=== PATIENT | female | born 1935 | race Hispanic/Latino ===

== ENCOUNTER 2018-02-24 12:02 | Emergency (ER) | payer MEDICARE ==
[2018-02-24 12:32] VITALS: BP 152/75; PULSE 81; RESP 18; TEMP 98.2; BMI 17.2
--- NOTE | 2018-02-24 13:58 | ED PDOC ---
Arrival/HPI - General Chief Complaint: Upper Extremity Problem/Injury Time Seen by Provider: 02/24/18 12:30 Historian: Patient, Family - History of Present Illness Narrative History of Present Illness (Text): you were treated in the ED today for having an accidental fall about 1 week ago , went to the clinic yesterday with xrays of the left wrist/forearm done which showed comminuted nondisplaced fracture of the distal ulna diaphysis. known radial ulnar styloid fracture is not well seen on the current study/oblique fractuyre distal ulna as well as a fracture of the radial styloid process on radias/ulna xrays and with mild pain but which is controlled with motrin and you came because you thought you were to see an orthopedic doctor today but otherwise without any head injury/neck pain/loss of of consciousness/nausea/ vomiting/headache/dizziness/difficulty breathing/chest pain/abdomen pain/ numbness/tingling/loss of any other limb function/pain with urination. 02/24/18 13:51 Time/Duration: 1 week Symptom Onset: Gradual Symptom Course: Improving Quality: Aching Severity Level: 2 Activities at Onset: Rest Context: Sitting Past Medical History - Provider Review Nursing Documentation Reviewed: Yes - Travel History Have you recently traveled outside [place] w/in the past 3 mons?: No - Cardiac Hx Cardiac Disorders: No - Pulmonary Hx Respiratory Disorders: No - Neurological Hx Neurological Disorder: No - HEENT Hx HEENT Disorder: No - Renal Hx Renal Disorder: No - Endocrine/Metabolic Hx Endocrine Disorders: No - Hematological/Oncological Hx Blood Disorders: No - Integumentary Hx Dermatological Disorder: No - Musculoskeletal/Rheumatological Hx Musculoskeletal Disorders: No - Gastrointestinal Hx Gastrointestinal Disorders: No - Genitourinary/Gynecological Hx Genitourinary Disorders: No - Psychiatric Hx Psychophysiologic Disorder: No Hx Substance Use: No - Anesthesia Hx Anesthesia: No Family/Social History - Physician Review Nursing Documentation Reviewed: Yes Family/Social History: No Known Family HX Smoking Status: Never Smoked Hx Alcohol Use: No Hx Substance Use: No Allergies/Home Meds Home Medications: Home Meds Medication Instructions Recorded Confirmed No Known Home Med 02/24/18 02/24/18 Review of Systems - Review of Systems Constitutional: Normal Eyes: Normal ENT: Normal Respiratory: Normal Cardiovascular: Normal Gastrointestinal: Normal Genitourinary Female: Normal Musculoskeletal: Arthralgias Skin: Normal Neurological: Normal Endocrine: Normal Hemo/Lymphatic: Normal Psychiatric: Normal Physical Exam Vital Signs Reviewed: Yes Vital Signs Temp Pulse Resp BP Pulse Ox 02/24/18 12:31 98.2 F 81 18 152/75 H 97 Temperature: Afebrile Blood Pressure: Hypertensive Pulse: Regular Respiratory Rate: Normal Appearance: Positive for: Well-Appearing, Non-Toxic, Comfortable Pain Distress: None Mental Status: Positive for: Alert and Oriented X 3 - Systems Exam Head: Present: Atraumatic, Normocephalic Pupils: Present: PERRL Extroacular Muscles: Present: EOMI Conjunctiva: Present: Normal Ears: Present: Normal Mouth: Present: Moist Mucous Membranes Pharnyx: Present: Normal Nose (External): Present: Atraumatic Nose (Internal): Present: Normal Inspection Neck: Present: Normal Range of Motion Respiratory/Chest: Present: Clear to Auscultation, Good Air Exchange Cardiovascular: Present: Regular Rate and Rhythm Abdomen: No: Tenderness, Distention, Normal Bowel Sounds, Peritoneal Signs, Rebound, Guarding, McBurney's Point Tender, Rovsing's Sign Present, Hernias, Feeding Tubes, Ostomy Tubes, Mass/Organomegaly, Scars, Other Back: Present: Normal Inspection Upper Extremity: Present: Other (, left hand/fingers warm/sensation/pink/ wiggling and secured nicely in splint/sling without any other bony tenderness) Lower Extremity: Present: Normal Inspection Neurological: Present: GCS=15, CN II-XII Intact, Speech Normal, Motor Func Grossly Intact Skin: Present: Warm, Normal Color Psychiatric: Present: Alert, Oriented x 3, Normal Insight, Normal Concentration Medical Decision Making ED Course and Treatment: you were treated in the ED today for having an accidental fall about 1 week ago , went to the clinic yesterday with xrays of the left wrist/forearm done which showed comminuted nondisplaced fracture of the distal ulna diaphysis. known radial ulnar styloid fracture is not well seen on the current study/oblique fractuyre distal ulna as well as a fracture of the radial styloid process on radias/ulna xrays and with mild pain but which is controlled with motrin and you came because you thought you were to see an orthopedic doctor today but otherwise without any head injury/neck pain/loss of of consciousness/nausea/ vomiting/headache/dizziness/difficulty breathing/chest pain/abdomen pain/ numbness/tingling/loss of any other limb function/pain with urination. You were otherwise breathing easily, smiling and talking with your family, good strength/ sensation, walking easily, clear lungs, no abdomen tenderness, left hand/ fingers warm/sensation/pink/wiggling and secured nicely in splint/sling without any other bony tenderness, no fever temp 98.2, stable heart rate 81, stable breathing rate 18, excellent oxygen level 97% room air, elevated blood pressure 152/75 which we recommend repeat in 2-3 days primary care office to determine further treatment, , you refused further xray imaging/pain medication at this time and the orthopedics doctor was in surgery and you didn't want to wait further for consultation at this time and stated you will followup as an outpatient with your primary care and referral to orthopedics done in the ED with improvement, counselled to monitor your symptoms and be non-weight bearing to the left upper extremity, and thus discharged home with family. 1. Recommend pain control as previously prescribed. 2.Recommend follow-up primary care 1-2 days to review symptoms, referral to orthopedics. 3. If any worsening pain, fever, chills, nausea, vomiting, difficulty breathing, numbness, loss of limb function, pain with urination or any medical condition then return to the ED. 02/24/18 13:58 02/24/18 14:01 outside radiology reports reviewed. pt didn't have CDs. Reassessment Condition: Re-examined, Improved Disposition/Present on Arrival - Present on Arrival Any Indicators Present on Arrival: No History of DVT/PE: No History of Uncontrolled Diabetes: No Urinary Catheter: No History of Decub. Ulcer: No History Surgical Site Infection Following: None - Disposition Have Diagnosis and Disposition been Completed?: Yes Diagnosis: Wrist fracture, left Disposition: HOME/ ROUTINE Disposition Time: 13:59 Patient Plan: Discharge Patient Problems: Current Active Problems Problem Status Onset Wrist fracture, left Acute Condition: IMPROVED Discharge Instructions (ExitCare): Wrist Fracture (DC) Additional Instructions: you were treated in the ED today for having an accidental fall about 1 week ago , went to the clinic yesterday with xrays of the left wrist/forearm done which showed comminuted nondisplaced fracture of the distal ulna diaphysis. known radial ulnar styloid fracture is not well seen on the current study/oblique fractuyre distal ulna as well as a fracture of the radial styloid process on radias/ulna xrays and with mild pain but which is controlled with motrin and you came because you thought you were to see an orthopedic doctor today but otherwise without any head injury/neck pain/loss of of consciousness/nausea/ vomiting/headache/dizziness/difficulty breathing/chest pain/abdomen pain/ numbness/tingling/loss of any other limb function/pain with urination. You were otherwise breathing easily, smiling and talking with your family, good strength/ sensation, walking easily, clear lungs, no abdomen tenderness, left hand/ fingers warm/sensation/pink/wiggling and secured nicely in splint/sling without any other bony tenderness, no fever temp 98.2, stable heart rate 81, stable breathing rate 18, excellent oxygen level 97% room air, elevated blood pressure 152/75 which we recommend repeat in 2-3 days primary care office to determine further treatment, , you refused further xray imaging/pain medication at this time and the orthopedics doctor was in surgery and you didn't want to wait further for consultation at this time and stated you will followup as an outpatient with your primary care and referral to orthopedics done in the ED with improvement, counselled to monitor your symptoms and be non-weight bearing to the left upper extremity, and thus discharged home with family. 1. Recommend pain control as previously prescribed. 2.Recommend follow-up primary care 1-2 days to review symptoms, referral to orthopedics. 3. If any worsening pain, fever, chills, nausea, vomiting, difficulty breathing, numbness, loss of limb function, pain with urination or any medical condition then return to the ED. Referrals: PCP,NO [Primary Care Provider] - Follow up with primary Breana Adams MD [Staff Provider] - Follow up with primary
[2018-02-24 14:08] VITALS: O2SAT 98
== END 2018-02-24 14:07 | disposition home or self-care (01) ==
LOC: ED 12:02
DX: S52.602D Unspecified fracture of lower end of left ulna, subsequent encounter for closed fracture with routine healing (principal); W19.XXXD Unspecified fall, subsequent encounter

== ENCOUNTER 2018-06-22 05:17 | Emergency (ER) | payer MEDICARE ==
[2018-06-22 05:17] VITALS: BMI 17.2
--- NOTE | 2018-06-22 05:41 | ED PDOC ---
Arrival/HPI - General Historian: Patient - General Chief Complaint: Trauma Time Seen by Provider: 06/22/18 05:24 - History of Present Illness Narrative History of Present Illness (Text): 06/22/18 05:40 Patient is a 82 year old female with no significant past medical history who presented to the ED vis EMS. Patient is a poor historian. Patient states that she was drinking this evening. Unsure how much she was drinking. Doesn't remember how she fell. States that she is not sure why she is here. She is AAOx2 (not oriented to time). Denies any head trauma or LOC. Denies any pain. No other complaints at this time. 06/22/18 06:21 Patients and son are at the bedside. Patient lives with the . He last saw her at approximately 1am before going to bed. He is unsure how the patient ended up outside. Fall appears to have been unwitnessed. Neighbors called EMS. Per the son, patient has been drinking vodka for the past year. Prior to that she was sober for > 20 years. Patient has a history of multiple falls and unsteady gait. (Rosa Valencia) Past Medical History - Provider Review Nursing Documentation Reviewed: Yes - Infectious Disease Hx of Infectious Diseases: None - Cardiac Hx Cardiac Disorders: No - Pulmonary Hx Respiratory Disorders: No - Neurological Hx Neurological Disorder: No - HEENT Hx HEENT Disorder: No - Renal Hx Renal Disorder: No - Endocrine/Metabolic Hx Endocrine Disorders: No - Hematological/Oncological Hx Blood Disorders: No - Integumentary Hx Dermatological Disorder: No - Musculoskeletal/Rheumatological Hx Musculoskeletal Disorders: No - Gastrointestinal Hx Gastrointestinal Disorders: No - Genitourinary/Gynecological Hx Genitourinary Disorders: No - Psychiatric Hx Psychophysiologic Disorder: No Hx Substance Use: No - Anesthesia Hx Anesthesia: No Family/Social History - Physician Review Nursing Documentation Reviewed: Yes Family/Social History: Unknown Family HX Smoking Status: Never Smoked Hx Alcohol Use: Yes (Last drink was this evening) Hx Substance Use: No Hx Substance Use Treatment: No Allergies/Home Meds Allergies/Adverse Reactions: Allergies Unobtainable Allergy (Verified 06/22/18 05:44) Review of Systems - Physician Review All systems were reviewed & negative as marked: Yes - Review of Systems Constitutional: absent: Fatigue, Fevers Eyes: absent: Vision Changes ENT: absent: Hearing Changes Respiratory: absent: SOB, Cough, Wheezing Cardiovascular: absent: Chest Pain, Palpitations Gastrointestinal: absent: Abdominal Pain, Constipation, Diarrhea, Nausea, Vomiting Genitourinary Female: absent: Dysuria Neurological: absent: Headache, Dizziness Physical Exam Vital Signs Reviewed: Yes Temperature: Afebrile Blood Pressure: Normal Pulse: Regular Respiratory Rate: Normal Appearance: Positive for: Non-Toxic, Unkept Pain Distress: None - Systems Exam Head: Present: Other (Bruise on left protestant, bruise above left eye brow) Pupils: Present: PERRL Extroacular Muscles: Present: EOMI Conjunctiva: Present: Normal Mouth: Present: Moist Mucous Membranes, Other (poor dentition) Neck: Present: Normal Range of Motion Respiratory/Chest: Present: Clear to Auscultation, Good Air Exchange. No: Respiratory Distress, Accessory Muscle Use Cardiovascular: Present: Regular Rate and Rhythm, Normal S1, S2 Back: Present: Normal Inspection Upper Extremity: Present: Normal ROM, NORMAL PULSES, Other (Right: large skin tear above elbow, abrasion on forearm Left: two circumferential healing skin tears on left forearm ) Lower Extremity: Present: NORMAL PULSES, Normal ROM, Other (Left Knee: small abrasion, multiple scabs ) Neurological: Present: Speech Normal Skin: Present: Warm, Dry, Normal Color Psychiatric: Present: Alert. No: Oriented x 3, Normal Insight Vital Signs Temp Pulse Resp BP Pulse Ox 06/22/18 08:58 97.9 F 77 19 138/64 98 06/22/18 07:57 97.9 F 77 19 138/64 98 06/22/18 05:29 97.6 F 72 18 123/67 100 Medical Decision Making ED Course and Treatment: 06/22/18 06:32 Patient presents s/p fall outside her home after drinking this evening. Patient and son at the bedside. Labs, EKG, CXR, XRAYS of the R/L Elbow, R/L Humerus, L Knee, Pelvis ordered. CT head also ordered. 06/22/18 07:[address] Whitley. ([facility]) - Lab Interpretations Lab Results: 06/22/18 05:50 06/22/18 05:50 Lab Results 06/22/18 07:38: Urine Color Yellow, Urine Appearance Sl cloudy, Urine pH 6.0, Ur Specific [place] 1.020, Urine Protein Trace H, Urine Glucose (UA) Negative, Urine Ketones 15 H, Urine Blood Negative, Urine Nitrate Negative, Urine Bilirubin Negative, Urine Urobilinogen 1.0 H, Ur Leukocyte Esterase Negative, Urine RBC Negative, Urine WBC 0 - 2, Ur Epithelial Cells 0 - 2, Urine Bacteria Trace 06/22/18 07:38: Urine Opiates Screen Negative, Urine Methadone Screen Negative, Ur Barbiturates Screen Negative, Ur Phencyclidine Scrn Negative, Ur Amphetamines Screen Negative, U Benzodiazepines Scrn Negative, U Oth Cocaine Metabols Negative, U Cannabinoids Screen Negative 06/22/18 05:50: Magnesium 1.7 06/22/18 05:50: Sodium 142, Potassium 3.3 L, Chloride 100, Carbon Dioxide 29, Anion Gap 17, BUN 11, Creatinine 0.4 L, Est GFR ( Amer) > 60, Est GFR ( Non-Af Amer) > 60, Random Glucose 96, Calcium 8.9, Total Bilirubin 0.9, AST 110 H, ALT 67 H, Alkaline Phosphatase 105, Total Protein 7.1, Albumin 4.0, Globulin 3.1, Albumin/Globulin Ratio 1.3 06/22/18 05:50: WBC 9.4, RBC 3.46 L, Hgb 12.0, Hct 33.9 L, MCV 98.0, MCH 34.7, MCHC 35.4, RDW 12.7, Plt Count 284, MPV 10.0, Gran % 65.9, Lymph % (Auto) 20.4 L , Carver % (Auto) 12.0 H, Eos % (Auto) 0.5 L, Baso % (Auto) 1.2, Gran # 6.22, Lymph # (Auto) 1.9, Carver # (Auto) 1.1 H, Eos # (Auto) 0.1, Baso # (Auto) 0.11 06/22/18 05:50: Alcohol, Quantitative 286 H - RAD Interpretation Radiology Orders: 06/22/18 05:44 HEAD W/O CONTRAST [CT] Stat 06/22/18 05:45 CXR [CHEST PORTABLE] [RAD] Stat 06/22/18 05:46 HUMERUS LT FALL PROTOCOL [RAD] Stat HUMERUS RT FALL PROTOCOL [RAD] Stat 06/22/18 05:47 ELBOW LEFT 3 VIEWS ROUTINE [RAD] Stat ELBOW RIGHT 3 VIEWS ROUTINE [RAD] Stat 06/22/18 05:48 KNEE LEFT 2 VIEWS (AP & LAT) [RAD] Stat 06/22/18 06:03 PELVIS ONE VIEW [RAD] Stat 06/22/18 06:50 CERVICAL SPINE W/O CONTRAST [CT] Stat - Medication Orders Current Medication Orders: Discontinued Medications Bacitracin (Bacitracin) 1 ea TOP ONCE ONE Stop: 06/22/18 07:41 Last Admin: 06/22/18 08:02 Dose: 1 ea Potassium Chloride (Potassium Chloride Oral Soln) 40 meq PO STAT STA Stop: 06/22/18 06:42 Last Admin: 06/22/18 07:23 Dose: 40 meq Tetanus/Reduced Diphtheria/Acell Pertussis (Boostrix Vaccine Inj) 0.5 ml IM .ONCE ONE Stop: 06/22/18 07:41 Last Admin: 06/22/18 08:02 Dose: 0.5 ml Immunization Registry Document 06/22/18 08:02 OCS (Rec: 06/22/18 08:02 OCS [id number]) Immunization Registry Consent Date 02/24/18 Disposition/Present on Arrival - Present on Arrival Any Indicators Present on Arrival: No History of DVT/PE: No History of Uncontrolled Diabetes: No Urinary Catheter: No History of Decub. Ulcer: No History Surgical Site Infection Following: None - Disposition Have Diagnosis and Disposition been Completed?: Yes Disposition Time: 07:00 - Disposition Diagnosis: Alcohol abuse, Abrasion, Skin avulsion, Head injury Disposition: Transfer [facility] Condition: IMPROVED Discharge Instructions (ExitCare): Skin Abrasions, Closed Head Injury Additional Instructions: CARMELA PAVON, thank you for letting us take care of you today. Your provider was Karan Whitley DO and you were treated for Fall, Alcohol Abuse, Skin Avulsions, Head Injury. The emergency medical care you received today was directed at your acute symptoms. If you were prescribed any medication, please fill it and take as directed. It may take several days for your symptoms to resolve. Return to the Emergency Department if your symptoms worsen, do not improve, or if you have any other problems. Please contact your doctor or call one of the physicians/clinics you have been referred to that are listed on the Patient Visit Information form that is included in your discharge packet. Bring any paperwork you were given at discharge with you along with any medications you are taking to your follow up visit. Our treatment cannot replace ongoing medical care by a primary care provider outside of the emergency department. Thank you for allowing the [facility] team to be part of your care today. If you had an X-Ray or CT scan: A Radiologist will review the ED reading if any change in treatment is needed we will contact you. If you had a blood, urine, or wound culture: It will take several days for the results, if any change in treatment is needed we will contact you. If you had an STI test: It will take 48 hours for the results. Please call after 1 week if you have not heard back. Prescriptions: Bacitracin Ointment [Bacitracin] 1 gm TOP TID #1 tube Referrals: Jose Washington MD [Staff Provider] - Follow up with primary Forms: [employer] ([place])
[2018-06-22 06:14] LABS: BASO # 0.11 K/mm3 (0.0-2.0); BASO % 1.2 % (0.0-3.0); EOS # 0.1 (0.0-0.7); EOS % 0.5 % (1.5-5.0); GRAN # 6.22 (1.4-6.5); GRAN % 65.9 % (50.0-68.0); LYMPH # 1.9 (1.2-3.4); LYMPH % 20.4 % (22.0-35.0); MEAN CORPUSCULAR HEMOGLOBIN 34.7 pg (25.0-35.0); MEAN CORPUSCULAR HGB CONC 35.4 g/dl (31.0-37.0); MONO # 1.1 (0.1-0.6); RBC 3.46 10^6/uL (3.5-6.1); RED CELL DISTRIBUTION WIDTH 12.7 % (11.5-14.5); WHITE BLOOD COUNT 9.4 10^3/ul (4.5-11.0)
[2018-06-22 06:40] LABS: ALB/GLOB RATIO 1.3 (1.1-1.8); ALT/SGPT 67 U/L (7-56); AST/SGOT 110 U/L (14-36); BLOOD UREA NITROGEN 11 mg/dL (7-21); CALCIUM 8.9 mg/dL (8.4-10.5); GFR AFRICAN-AMERICAN > 60; GFR NON-AFRICAN AMERICAN > 60
[2018-06-22] MEDS ORDERED: Potassium Chloride 40 mEq/30 ml LIQ UD PO STA (06:41)
--- NOTE | 2018-06-22 07:24 | ED PDOC ---
Physical Exam Vital Signs Reviewed: Yes Vital Signs Temp Pulse Resp BP Pulse Ox 06/22/18 07:57 97.9 F 77 19 138/64 98 06/22/18 05:29 97.6 F 72 18 123/67 100 Temperature: Afebrile Blood Pressure: Normal Pulse: Regular Respiratory Rate: Normal Medical Decision Making ED Course and Treatment: 06/22/18 07:21 Patient endorsed to me by Dr. Mandujano, pending results for CT, xray, EKG and urinalysis, reevaluation, and disposition. 06/22/18 08:09 EKG shows NSR at [address]-segment elevations, normal intervals, normal axis. Interpreted by me. Superficial skin avulsions and abrasion on forearms and knee were cleaned, bacitracin was applied and wrapped with gauze by the EMT. Report: 06/22/18 07:29 Dictated and Authenticated by: Chucky Nguyen MD EXAM: CT Cervical Spine Without Intravenous Contrast IMPRESSION: No acute findings. 06/22/18 08:53 Patient is alert awake and oriented x 3. No slurred speech. She is able to walk with assistance. Her and son are at bedside. I have discussed with them that I can provide a administrator social welfare to come and speak to them. She does not want one and they are ok with this. I explained to them that there are detox programs she can attend and gave her a list of places. She wants to go home and they say they feel comfortable taking her home. - Lab Interpretations Lab Results: 06/22/18 05:50 06/22/18 05:50 Lab Results 06/22/18 07:38: Urine Color Yellow, Urine Appearance Sl cloudy, Urine pH 6.0, Ur Specific [place] 1.020, Urine Protein Trace H, Urine Glucose (UA) Negative, Urine Ketones 15 H, Urine Blood Negative, Urine Nitrate Negative, Urine Bilirubin Negative, Urine Urobilinogen 1.0 H, Ur Leukocyte Esterase Negative, Urine RBC Negative, Urine WBC 0 - 2, Ur Epithelial Cells 0 - 2, Urine Bacteria Trace 06/22/18 07:38: Urine Opiates Screen Negative, Urine Methadone Screen Negative, Ur Barbiturates Screen Negative, Ur Phencyclidine Scrn Negative, Ur Amphetamines Screen Negative, U Benzodiazepines Scrn Negative, U Oth Cocaine Metabols Negative, U Cannabinoids Screen Negative 06/22/18 05:50: Magnesium 1.7 06/22/18 05:50: Sodium 142, Potassium 3.3 L, Chloride 100, Carbon Dioxide 29, Anion Gap 17, BUN 11, Creatinine 0.4 L, Est GFR ( Amer) > 60, Est GFR ( Non-Af Amer) > 60, Random Glucose 96, Calcium 8.9, Total Bilirubin 0.9, AST 110 H, ALT 67 H, Alkaline Phosphatase 105, Total Protein 7.1, Albumin 4.0, Globulin 3.1, Albumin/Globulin Ratio 1.3 06/22/18 05:50: WBC 9.4, RBC 3.46 L, Hgb 12.0, Hct 33.9 L, MCV 98.0, MCH 34.7, MCHC 35.4, RDW 12.7, Plt Count 284, MPV 10.0, Gran % 65.9, Lymph % (Auto) 20.4 L , [place] % (Auto) 12.0 H, Eos % (Auto) 0.5 L, Baso % (Auto) 1.2, Gran # 6.22, Lymph # (Auto) 1.9, [place] # (Auto) 1.1 H, Eos # (Auto) 0.1, Baso # (Auto) 0.11 06/22/18 05:50: Alcohol, Quantitative 286 H - RAD Interpretation Radiology Orders: 06/22/18 05:44 HEAD W/O CONTRAST [CT] Stat 06/22/18 05:45 CXR [CHEST PORTABLE] [RAD] Stat 06/22/18 05:46 HUMERUS LT FALL PROTOCOL [RAD] Stat HUMERUS RT FALL PROTOCOL [RAD] Stat 06/22/18 05:47 ELBOW LEFT 3 VIEWS ROUTINE [RAD] Stat ELBOW RIGHT 3 VIEWS ROUTINE [RAD] Stat 06/22/18 05:48 KNEE LEFT 2 VIEWS (AP & LAT) [RAD] Stat 06/22/18 06:03 PELVIS ONE VIEW [RAD] Stat 06/22/18 06:50 CERVICAL SPINE W/O CONTRAST [CT] Stat - Medication Orders Current Medication Orders: Discontinued Medications Bacitracin (Bacitracin) 1 ea TOP ONCE ONE Stop: 06/22/18 07:41 Last Admin: 06/22/18 08:02 Dose: 1 ea Potassium Chloride (Potassium Chloride Oral Soln) 40 meq PO STAT STA Stop: 06/22/18 06:42 Last Admin: 06/22/18 07:23 Dose: 40 meq Tetanus/Reduced Diphtheria/Acell Pertussis (Boostrix Vaccine Inj) 0.5 ml IM .ONCE ONE Stop: 06/22/18 07:41 Last Admin: 06/22/18 08:02 Dose: 0.5 ml Immunization Registry Document 06/22/18 08:02 OCS (Rec: 06/22/18 08:02 OCS [id number]) Immunization Registry Consent Date 02/24/18 - Scribe Statement The provider has reviewed the documentation as recorded by the Scribe Tequila Beck Provider Scribe Attestation: All medical record entries made by the Scribe were at my direction and personally dictated by me. I have reviewed the chart and agree that the record accurately reflects my personal performance of the history, physical exam, medical decision making, and the department course for this patient. I have also personally directed, reviewed, and agree with the discharge instructions and disposition. Disposition/Present on Arrival - Present on Arrival Any Indicators Present on Arrival: No History of DVT/PE: No History of Uncontrolled Diabetes: No Urinary Catheter: No History of Decub. Ulcer: No History Surgical Site Infection Following: None - Disposition Have Diagnosis and Disposition been Completed?: Yes Diagnosis: Alcohol abuse, Abrasion, Skin avulsion, Head injury Disposition: HOME/ ROUTINE Disposition Time: 08:56 Patient Plan: Discharge Patient Problems: Current Active Problems Problem Status Onset Alcohol abuse Acute Abrasion Acute Skin avulsion Acute Head injury Acute Condition: IMPROVED Discharge Instructions (ExitCare): Skin Abrasions, Closed Head Injury Additional Instructions: CARMELA PAVON, thank you for letting us take care of you today. Your provider was Karan Whitley DO and you were treated for Fall, Alcohol Abuse, Skin Avulsions, Head Injury. The emergency medical care you received today was directed at your acute symptoms. If you were prescribed any medication, please fill it and take as directed. It may take several days for your symptoms to resolve. Return to the Emergency Department if your symptoms worsen, do not improve, or if you have any other problems. Please contact your doctor or call one of the physicians/clinics you have been referred to that are listed on the Patient Visit Information form that is included in your discharge packet. Bring any paperwork you were given at discharge with you along with any medications you are taking to your follow up visit. Our treatment cannot replace ongoing medical care by a primary care provider outside of the emergency department. Thank you for allowing the [facility] team to be part of your care today. If you had an X-Ray or CT scan: A Radiologist will review the ED reading if any change in treatment is needed we will contact you. If you had a blood, urine, or wound culture: It will take several days for the results, if any change in treatment is needed we will contact you. If you had an STI test: It will take 48 hours for the results. Please call after 1 week if you have not heard back. Prescriptions: Bacitracin Ointment [Bacitracin] 1 gm TOP TID #1 tube Referrals: Jose Washington MD [Staff Provider] - Follow up with primary Forms: [employer] (Welsh)
[2018-06-22] MEDS ORDERED: Bacitracin 500 Units/gm Oint Foilpak UD TOP ONE (07:40)
[2018-06-22] MEDS ORDERED: TDAP Vaccine 0.5 mL Syr IM ONE (07:40)
[2018-06-22 07:59] VITALS: BP 138/64; PULSE 77; RESP 19; TEMP 97.9; O2SAT 98
[2018-06-22 08:06] LABS: URINE BILIRUBIN NEGATIVE (NEGATIVE); URINE BLOOD NEGATIVE (NEGATIVE); URINE GLUCOSE (UA) NEGATIVE (NEGATIVE); URINE LEUKOCYTE ESTERASE NEGATIVE Leu/uL (NEGATIVE); URINE PROTEIN TRACE mg/dL (<30 mg/dL)
[2018-06-22 08:10] LABS: URINE APPEARANCE SL CLOUDY (CLEAR); URINE COLOR YELLOW (YELLOW)
[2018-06-22 08:16] LABS: BARBITURATES, UR NEGATIVE (NEGATIVE); BENZODIAZEPINES, UR NEGATIVE (NEGATIVE); OPIATES, UR NEGATIVE (NEGATIVE); PHENCYCLIDINE, UR NEGATIVE (NEGATIVE)
[2018-06-22 08:22] LABS: URINE BACTERIA TRACE (NEG); URINE EPITHELIAL CELLS 0 - 2 /hpf (0-5); URINE RBC NEGATIVE /hpf (0-2); URINE WBC 0 - 2 /hpf (0-6)
--- NOTE | 2018-06-22 09:09 | RAD ---
Date of service: 06/22/2018 HISTORY: s/p fall COMPARISON: No prior. FINDINGS: LUNGS: No active pulmonary disease. PLEURA: No significant pleural effusion identified, no pneumothorax apparent. CARDIOVASCULAR: Normal. OSSEOUS STRUCTURES: No significant abnormalities. VISUALIZED UPPER ABDOMEN: Normal. OTHER FINDINGS: None. IMPRESSION: No active disease.
--- NOTE | 2018-06-22 09:22 | RAD ---
Date of service: 06/22/2018 PROCEDURE: Radiographs of the left elbow. HISTORY: s/p fall COMPARISON: No prior. FINDINGS: BONES: Normal. No fracture. JOINTS: Normal. No osteoarthritis. SOFT TISSUES: Normal. JOINT EFFUSION: None. OTHER FINDINGS: None IMPRESSION: Unremarkable radiographs of the left elbow.
--- NOTE | 2018-06-22 09:22 | RAD ---
Date of service: 06/22/2018 PROCEDURE: Left Knee Radiographs. HISTORY: Pain. COMPARISON: None. FINDINGS: BONES: Normal. No fracture. JOINTS: Normal. No osteoarthritis. JOINT EFFUSION: None. OTHER FINDINGS: None. IMPRESSION: Normal radiographs of the left knee.
--- NOTE | 2018-06-22 09:23 | RAD ---
Date of service: 06/22/2018 PROCEDURE: Radiographs of the right elbow. HISTORY: s/p fall COMPARISON: No prior. FINDINGS: BONES: Normal. No fracture. JOINTS: Normal. No osteoarthritis. SOFT TISSUES: Normal. JOINT EFFUSION: None. OTHER FINDINGS: None. IMPRESSION: Unremarkable radiographs of the right elbow.
--- NOTE | 2018-06-22 09:25 | RAD ---
PROCEDURE: Radiographs of the left humerus. HISTORY: s/p fall COMPARISON: None. FINDINGS: BONES: Normal. No fracture or focal lesion. SOFT TISSUES: Normal. OTHER FINDINGS: None. IMPRESSION: Normal radiographs of left humerus.
--- NOTE | 2018-06-22 09:26 | RAD ---
PROCEDURE: Radiographs of the right humerus. HISTORY: s/p fall COMPARISON: None. FINDINGS: BONES: Normal. No fracture or focal lesion. SOFT TISSUES: Normal. OTHER FINDINGS: None. IMPRESSION: Normal radiographs of right humerus.
--- NOTE | 2018-06-22 09:27 | RAD ---
Date of service: 06/22/2018 PROCEDURE: Radiographs of the pelvis. HISTORY: trauma COMPARISON: None. FINDINGS: BONES: Pelvic Bones: Unremarkable. Hips: Grossly unremarkable. JOINTS: Sacroiliac Joints: Unremarkable. Pubic Symphysis: Unremarkable. OTHER FINDINGS: None. IMPRESSION: Unremarkable radiographs of the pelvis.
--- NOTE | 2018-06-22 09:53 | CT ---
Date of service: 06/22/2018 PROCEDURE: CT HEAD WITHOUT CONTRAST. HISTORY: s/p fall COMPARISON: None available. TECHNIQUE: Axial computed tomography images were obtained through the head/brain without intravenous contrast. Radiation dose: Total exam DLP = 666 mGy-cm. This CT exam was performed using one or more of the following dose reduction techniques: Automated exposure control, adjustment of the mA and/or kV according to patient size, and/or use of iterative reconstruction technique. FINDINGS: HEMORRHAGE: No intracranial hemorrhage. BRAIN: No mass effect or edema. No atrophy or chronic microvascular ischemic changes. VENTRICLES: Unremarkable. No hydrocephalus. CALVARIUM: Unremarkable. PARANASAL SINUSES: Unremarkable as visualized. No significant inflammatory changes. MASTOID AIR CELLS: Unremarkable as visualized. No inflammatory changes. OTHER FINDINGS: The report concurs with the preliminary [facility] report IMPRESSION: No acute findings
--- NOTE | 2018-06-22 10:16 | CT ---
Date of service: 06/22/2018 PROCEDURE: CT Cervical Spine without contrast HISTORY: trauma COMPARISON: None available. TECHNIQUE: Axial computed tomography images were obtained of the cervical spine without the use of intravenous contrast. Coronal and sagittal reformatted images were created and reviewed. Radiation dose: Total exam DLP = 162 mGy-cm. This CT exam was performed using one or more of the following dose reduction techniques: Automated exposure control, adjustment of the mA and/or kV according to patient size, and/or use of iterative reconstruction technique. FINDINGS: VERTEBRAE: No fracture. Normal alignment. No destructive bony lesion. DISCS/SPINAL CANAL/NEURAL FORAMINA: No significant central canal or neural foraminal stenosis. There is disc degeneration at multiple levels. No significant central stenosis PARASPINAL SOFT TISSUES: Unremarkable. OTHER FINDINGS: The report concurs with the preliminary [facility] report IMPRESSION: No acute findings
--- NOTE | 2018-06-22 19:25 | CARD ---
APPROVED REPORT Date of service: 06/22/2018 EKG Measurement Heart [id number] PA 126P [id number] <Conclusion> Normal sinus rhythm Normal ECG
== END 2018-06-22 08:58 | disposition short-term general hospital (02) ==
LOC: ED 05:17
DX: F10.10 Alcohol abuse, uncomplicated (principal); S09.90XA Unspecified injury of head, initial encounter; S51.802A Unspecified open wound of left forearm, initial encounter; S51.801A Unspecified open wound of right forearm, initial encounter; S50.812A Abrasion of left forearm, initial encounter; S80.212A Abrasion, left knee, initial encounter; W19.XXXA Unspecified fall, initial encounter; R29.6 Repeated falls
CPT/HCPCS: 70450; 71045; 72125; 72170; 73060; 73080; 73560; 80053; 81001; 83735; 85025; 90471; 90715; 93005; 99285; G0480; J3480

== ENCOUNTER 2018-09-25 18:25 | Inpatient (IN) | payer MEDICARE, OTHER ==
[2018-09-25 18:46] VITALS: BMI 17.9
[2018-09-25 19:44] LABS: HEMOGLOBIN 12.1 g/dL (12.0-16.0); MEAN CELL VOLUME 96.9 fl (80.0-105.0); MEAN CORPUSCULAR HEMOGLOBIN 33.8 pg (25.0-35.0); MEAN CORPUSCULAR HGB CONC 34.9 g/dl (31.0-37.0); MEAN PLATELET VOLUME 8.9 fl (7.0-11.0); RBC 3.58 10^6/uL (3.5-6.1); RED CELL DISTRIBUTION WIDTH 15.1 % (11.5-14.5); WHITE BLOOD COUNT 5.7 10^3/uL (4.5-11.0)
[2018-09-25 19:52] LABS: INR 0.99; PARTIAL THROMBOPLASTIN TIME 24.3 Seconds (25.1-36.5); PROTHROMBIN TIME 11.3 SECONDS (9.4-12.5)
[2018-09-25 20:05] LABS: TROPONIN I 0.01 ng/mL
[2018-09-25 20:07] LABS: ALBUMIN 3.3 g/dL (3.0-4.8); AST/SGOT 137 U/L (14-36); BLOOD UREA NITROGEN 17 mg/dL (7-21); CALCIUM 7.9 mg/dL (8.4-10.5); GFR NON-AFRICAN AMERICAN > 60
[2018-09-25 20:08] LABS: ALT/SGPT 74 U/L (7-56)
--- NOTE | 2018-09-25 20:12 | ED PDOC ---
Arrival/HPI - General Chief Complaint: Trauma Time Seen by Provider: 09/25/18 19:17 Historian: Patient - History of Present Illness Narrative History of Present Illness (Text): 09/25/18 19:20 Franny Mercedes is an 82 year old female, whose past medical history includes alcohol abuse and mild dementia, who presents to the Emergency department brought in by EMS following a syncopal episode. Patient states does not recall what happened. Patient had apparently fallen and hit her head. Patient admits drinking a few alcoholic drinks. Patient denies any chest pain, shortness of breath, nausea, vomiting, neck pain, or any other complaints. Time/Duration: Prior to Arrival Symptom Onset: Sudden Symptom Course: Unchanged Activities at Onset: Light Context: Home Past Medical History - Provider Review Nursing Documentation Reviewed: Yes - Infectious Disease Hx of Infectious Diseases: None - Cardiac Hx Cardiac Disorders: No - Pulmonary Hx Respiratory Disorders: No - Neurological Hx Neurological Disorder: No - HEENT Hx HEENT Disorder: No - Renal Hx Renal Disorder: No - Endocrine/Metabolic Hx Endocrine Disorders: No - Hematological/Oncological Hx Blood Disorders: No - Integumentary Hx Dermatological Disorder: No - Musculoskeletal/Rheumatological Hx Musculoskeletal Disorders: No - Gastrointestinal Hx Gastrointestinal Disorders: No - Genitourinary/Gynecological Hx Genitourinary Disorders: No - Psychiatric Hx Psychophysiologic Disorder: No Hx Substance Use: No - Anesthesia Hx Anesthesia: No Family/Social History - Physician Review Nursing Documentation Reviewed: Yes Family/Social History: Unknown Family HX Smoking Status: Never Smoked Hx Alcohol Use: Yes (Last drink was this evening) Hx Substance Use: No Hx Substance Use Treatment: No Allergies/Home Meds Allergies/Adverse Reactions: Allergies No Known Allergies Allergy (Verified 09/25/18 18:48) Home Medications: Home Meds Medication Instructions Recorded Confirmed No Known Home Med 09/25/18 09/25/18 Review of Systems - Physician Review All systems were reviewed & negative as marked: Yes - Review of Systems Constitutional: Normal. absent: Fevers Eyes: Normal ENT: Normal Respiratory: Normal. absent: SOB, Cough Cardiovascular: Syncope. absent: Chest Pain Gastrointestinal: Normal. absent: Abdominal Pain, Diarrhea, Vomiting Genitourinary Female: Normal Musculoskeletal: Normal. absent: Back Pain, Neck Pain Skin: Normal Neurological: Normal. absent: Headache, Dizziness Endocrine: Normal Hemo/Lymphatic: Normal Psychiatric: Normal Physical Exam Vital Signs Reviewed: Yes Vital Signs Temp Pulse Resp BP Pulse Ox 09/25/18 18:48 97.6 F 87 18 133/60 99 Temperature: Afebrile Blood Pressure: Normal Pulse: Regular Respiratory Rate: Normal Appearance: Positive for: Well-Appearing, Non-Toxic, Comfortable Pain Distress: None Mental Status: Positive for: Alert and Oriented X 3 - Systems Exam Head: Present: Normocephalic, Contusion (Contusion to right frontal scalp) Pupils: Present: PERRL Extroacular Muscles: Present: EOMI Conjunctiva: Present: Normal Ears: Present: Normal, NORMAL TM, Normal Canal. No: Erythema, TM Bulging, Fluid, TM Perf Mouth: Present: Moist Mucous Membranes Pharnyx: Present: Normal. No: ERYTHEMA, EXUDATE, TONSILS ENLARGED, Peritonsilar Swelling, Uvular Deviation, Muffled/Hoarse Voice, [place], Soft Palate/Uvular Edema Nose (External): Present: Atraumatic Nose (Internal): Present: Normal Inspection Neck: Present: Normal Range of Motion. No: Meningeal Signs, MIDLINE TENDERNESS, Paraspinal Tenderness Respiratory/Chest: Present: Clear to Auscultation, Good Air Exchange. No: Respiratory Distress, Accessory Muscle Use Cardiovascular: Present: Regular Rate and Rhythm, Normal S1, S2. No: Murmurs Abdomen: No: Tenderness, Distention, Peritoneal Signs Back: Present: Normal Inspection. No: CVA Tenderness, Midline Tenderness, Paraspinal Tenderness Upper Extremity: Present: Normal Inspection. No: Cyanosis, Edema Lower Extremity: Present: Normal Inspection. No: Edema Neurological: Present: GCS=15, CN II-XII Intact, Speech Normal, Motor Func Grossly Intact, Normal Sensory Function, Normal Cerebellar Funct Skin: Present: Warm, Dry, Normal Color. No: Rashes Psychiatric: Present: Alert, Oriented x 3, Normal Insight, Normal Concentration Medical Decision Making ED Course and Treatment: 09/25/18 19:20 Impression: 82 year old female brought in s/p syncopal episode. Plan: -- CT Head w/o contrast -- EKG -- Labs, cardiac enzymes -- Reassess and disposition Prior Visits: Notes and results from previous visits were reviewed. Progress Notes: Reviewed EKG, NSR at 92 bpm. Occasional PVC. Non-specific ST/T wave changes. 09/25/18 22:[address] Kami Washington, who is aware and agrees with plan. Accepts pt in to his service. Pt will go to Telemetry observation for syncope and hypokalemia. - Lab Interpretations Lab Results: 09/25/18 19:40 09/25/18 19:40 Lab Results 09/25/18 19:40: WBC 5.7 D, RBC 3.58, Hgb 12.1, Hct 34.7 L, MCV 96.9, MCH 33.8, MCHC 34.9, RDW 15.1 H, Plt Count 415, MPV 8.9 09/25/18 19:40: PT 11.3, INR 0.99, APTT 24.3 L 09/25/18 19:40: Sodium 140, Potassium 2.6 L* D, Chloride 88 L, Carbon Dioxide 41 H D, Anion Gap 14, BUN 17, Creatinine 0.5 L, Est GFR ( Amer) > 60, Est GFR (Non-Af Amer) > 60, Random Glucose 124 H, Calcium 7.9 L, Total Bilirubin 0.6, AST 137 H D, ALT 74 H, Alkaline Phosphatase 136 H D, Lactate Dehydrogenase 875 H, Total Creatine Kinase 72, Troponin I 0.01, Total Protein 6.7, Albumin 3.3, Globulin 3.4, Albumin/Globulin Ratio 1.0 L I have reviewed the lab results: Yes - RAD Interpretation Radiology Orders: 09/25/18 19:21 HEAD W/O CONTRAST [CT] Stat - EKG Interpretation Interpreted by ED Physician: Yes Type: 12 lead EKG - Scribe Statement The provider has reviewed the documentation as recorded by the Gurdeep Morales Provider Scribe Attestation: All medical record entries made by the Neldaibmartín were at my direction and personally dictated by me. I have reviewed the chart and agree that the record accurately reflects my personal performance of the history, physical exam, medical decision making, and the department course for this patient. I have also personally directed, reviewed, and agree with the discharge instructions and disposition. Disposition/Present on Arrival - Present on Arrival Any Indicators Present on Arrival: No History of DVT/PE: No History of Uncontrolled Diabetes: No Urinary Catheter: No History of Decub. Ulcer: No History Surgical Site Infection Following: None - Disposition Have Diagnosis and Disposition been Completed?: Yes Diagnosis: Syncope, Hypokalemia, Alcohol abuse Disposition: HOSPITALIZED Disposition Time: 22:17 Condition: STABLE Discharge Instructions (ExitCare): Syncope (ED) Forms: [employer] (Scottish)
[2018-09-25] MEDS ORDERED: Potassium Chloride 20 mEq 100 ML IV ONE ×2 (21:31→22:22)
[2018-09-25] MEDS: Folic Acid 1 MG, Thiamine 100 MG, Multivitamin (MVI) 10 ML in Dextrose 5% In Water 1,00... IV SCH (22:59)
[2018-09-26] MEDS ORDERED: Pneumococcal 23-Valent Vaccine IM ONE (03:37)
--- NOTE | 2018-09-26 05:04 | CT ---
Date of service: 09/25/2018 PROCEDURE: CT HEAD WITHOUT CONTRAST. HISTORY: syncope COMPARISON: 08/06/2018. TECHNIQUE: Axial computed tomography images were obtained through the head/brain without intravenous contrast. Radiation dose: Total exam DLP = 791.33 mGy-cm. This CT exam was performed using one or more of the following dose reduction techniques: Automated exposure control, adjustment of the mA and/or kV according to patient size, and/or use of iterative reconstruction technique. FINDINGS: HEMORRHAGE: No intracranial hemorrhage. BRAIN: There are mild chronic microangiopathic changes. 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 There is no mass, mass effect or abnormal extra-axial fluid collection. There is no territorial infarction. The midline sagittal structures are normal. VENTRICLES: There is mild age-related global parenchymal volume loss and proportionate enlargement of the ventricles and cortical sulci. CALVARIUM: There is no calvarial fracture or extracranial soft tissue swelling. PARANASAL SINUSES: Predominantly clear. MASTOID AIR CELLS: Predominantly clear. OTHER FINDINGS: None. IMPRESSION: No acute intracranial abnormality. Mild chronic microangiopathic changes and mild age-related global parenchymal volume loss. A preliminary report was provided by [employer].
[2018-09-26] MEDS: Folic Acid 1 MG, Thiamine 100 MG, Multivitamin (MVI) 10 ML in Dextrose 5% In Water 1,00... IV SCH (07:50)
[2018-09-26 09:13] LABS: BLOOD UREA NITROGEN 15 mg/dL (7-21); CALCIUM 7.6 mg/dL (8.4-10.5); GFR NON-AFRICAN AMERICAN > 60
--- NOTE | 2018-09-26 10:37 | CARD ---
APPROVED REPORT Date of service: 09/25/2018 EKG Measurement Heart [id number] <Conclusion> Sinus rhythm 1 ventricular couplet ASMI, old IVCD STTW changes c/w ischemia
[2018-09-26] MEDS: Dextrose 5%/0.45% NS 1,000 ML IV SCH ×2 (14:57→21:04)
[2018-09-26] MEDS: Multi Vitamins 15 mL UD Oral Solution PO SCH (17:48)
--- NOTE | 2018-09-26 18:37 | HP ---
HISTORY OF PRESENT ILLNESS: The patient is an 82-year-old female with a past medical history positive for alcoholism and senile dementia. The family has been having problems with the patient pleading with her to stop drinking. She was brought to our office for a visit. However, the patient is in complete denial, she feels there is nothing wrong with her, and she insists that she does not drink. On the day of admission, the patient left the house and fell outside a local liquor store on [address]. She suffered an abrasion to the right frontal area and was brought to the emergency room. In the emergency room, she was found to have an elevated alcohol level of 218 and severely depressed potassium of 2.5, therefore she was admitted. PAST MEDICAL HISTORY: Positive for alcoholism and senile dementia as mentioned above. SOCIAL HISTORY: She never smoked. Admits to drinking alcohol on the day of admission. MEDICATIONS: The patient does not recall what medications she was on. As per the family, she probably was noncompliant with her medications. ALLERGIES: SHE HAS NO KNOWN MEDICAL ALLERGIES. REVIEW OF SYSTEMS: Otherwise negative. PHYSICAL EXAMINATION: Her blood pressure is 133/60, heart rate is 87 beats per minute, and she is afebrile at 97.6 degrees Fahrenheit. Head, eyes, ears, nose and throat are remarkable for the abrasion over the right brow. There are some multiple abrasions and contusions over the body from frequent falls at home. The neck is supple with no lymphadenopathy and no goiter. The lungs are clear to auscultation and percussion. Heart is regular. Abdomen is soft and nontender. Extremities are free of cyanosis, clubbing or edema. Neurologically, the patient is awake and alert. There are no focal neurological signs. LABORATORY STUDIES: White blood cell count is 5.7, hemoglobin and hematocrit are 12.1 and 34.7 respectively, and platelet count is 415. Sodium is 140, potassium is markedly depressed at 2.6, chloride is 88, bicarb is 41, blood urea nitrogen is 17, creatinine is 0.5, and glucose is 124. Liver enzymes are elevated with a total bilirubin of 0.6, AST is 137, ALT is 74, alkaline phosphatase is 136, lactate dehydrogenase is 872. Troponins are negative at 0.01. CAT scan of the head shows mild small-vessel disease. EKG showed regular sinus rhythm with PVCs and a possible old anterior wall myocardial infarction. ASSESSMENT AND PLAN: The patient is admitted with hypokalemia and EtOH intoxication. We will follow the patient closely. She will be reevaluated in the morning. Librium, thiamine and multivitamins have been ordered. Jose Washington MD
--- NOTE | 2018-09-27 00:51 | CON ---
DATE : 09/26/2018 HISTORY OF PRESENT ILLNESS: Franny Mercedes is an 82-year-old female who does not have former psychiatry history; however does have history of chronic alcohol abuse and of mild dementia, who presented to our ER after she was brought in by EMS following a syncopal episode. Psychiatry was consulted because the patient does have a history of chronic alcohol use, which appeared to have contributed to current presentation. I met with the patient at bedside, she is quite pleasant and cooperative, though little guarded, but she does open up and readily admit to using alcohol almost on a daily basis and then eventually she does indicate that she uses it on a daily basis, but has decreased her use in general. She knows that she fell. She does not know what to tell, but she is open to the idea that alcohol was involved. The patient indicated that she generally takes one to two shots of vodka daily, last use was about 2 days ago. She does not have any history of rehab or detox and her family is well aware of her problem according to the patient. The patient denies any hallucination. She denies any depression. However, she is either delirious or demented, she has no idea what month or year it is but she does know she is in [place]. Although the patient wants to cut back or discontinue her alcohol use, she does not appear to be very motivated at this time. Generally has been in control on the unit and open to recommendations for possible treatment of her alcohol dependency. Her insight and judgement are considered to be limited due to her dementia versus delirium versus chronic alcohol abuse. Vitals and labs were reviewed by provider. Of note, toxicology showed alcohol of 218 on 09/25/2018. RELEVANT PSYCHIATRIC MEDICATIONS: Include Librium 10 mg p.o. every 8 hours scheduled. PSYCHIATRIC HISTORY: The patient denies any formal psychiatric history and review of [facility] indicates that the patient has never been hospitalized in the psychiatric unit or required a psychiatric consult in the past. She denies any history of suicide attempts or psychiatric medication trial. SOCIAL HISTORY: The patient indicates that she was born and raised in [place]. She lives with her and her son likely lives upstairs. Indicates that her family is aware of her alcohol use. She generally has a shot of vodka daily. She denies any drug use. She denies any history of rehab or detoxes. IMPRESSION: Severe alcohol use disorder and by history mild dementia. RECOMMENDATION: I would recommend that medical team continue to treat patient as though she is withdrawing from alcohol, she does not readily admit to drinking alcohol on a daily basis. The patient should be put on a taper of Librium provided her vitals would tolerate the taper. There is no psychiatric indication at this time for her transit to the unit voluntarily and she defers on this type of transfer, though she is open to counseling and recommendations for substance abuse treatment once she is medically stabilized. In this respect, I recommended addiction social worker speak with the patient regarding program that she has been engaging including substance abuse program which can provide counseling and might also provide medication such as naltrexone. Medical team can follow up with the patient regarding this possible intervention as well. However, the patient needs to be clean from alcohol for at least 3 days to consider this intervention. Psychiatry will sign off at this time. Medicine can handle patient's alcohol withdrawal. Ella Boyer MD
[2018-09-27 06:46] LABS: HEMOGLOBIN 10.2 g/dL (12.0-16.0); MEAN CELL VOLUME 97.3 fl (80.0-105.0); MEAN CORPUSCULAR HGB CONC 34.9 g/dl (31.0-37.0); MEAN PLATELET VOLUME 9.6 fl (7.0-11.0); RED CELL DISTRIBUTION WIDTH 15.2 % (11.5-14.5); WHITE BLOOD COUNT 6.1 10^3/uL (4.5-11.0)
[2018-09-27] MEDS: Dextrose 5%/0.45% NS 1,000 ML IV SCH ×2 (06:57→18:14)
[2018-09-27 07:20] LABS: ALB/GLOB RATIO 0.9 (1.1-1.8); ALBUMIN 2.5 g/dL (3.0-4.8); ALT/SGPT 55 U/L (7-56); AST/SGOT 69 U/L (14-36); BLOOD UREA NITROGEN 9 mg/dL (7-21); CALCIUM 7.5 mg/dL (8.4-10.5); GFR NON-AFRICAN AMERICAN > 60
[2018-09-27] MEDS: Multi Vitamins 15 mL UD Oral Solution PO SCH (18:14)
[2018-09-27] MEDS ORDERED: Dextrose 5%/0.45% NS 1,000 ML IV SCH (19:38)
[2018-09-27] MEDS ORDERED: Potassium Chloride 20 mEq ER Tab PO ONE ×2 (20:00→21:00)
[2018-09-28] MEDS ORDERED: Potassium Chloride 20 mEq ER Tab PO ONE ×2 (11:06→12:21)
[2018-09-28] MEDS ORDERED: Magnesium Sulfate 2 gm/50 ml 2 GM/50 ML BAG IVPB SCH (11:15)
[2018-09-28] MEDS ORDERED: Magnesium Sulfate 2 GM in 50 ml Water IVPB SCH (11:15)
[2018-09-28 11:58] LABS: BASO # 0.09 K/mm3 (0.0-2.0); BASO % 1.4 % (0.0-3.0); EOS # 0.1 (0.0-0.7); EOS % 1.6 % (1.5-5.0); GRAN # 4.07 (1.4-6.5); GRAN % 63.7 % (50.0-68.0); HEMOGLOBIN 9.5 g/dL (12.0-16.0); LYMPH # 1.2 (1.2-3.4); LYMPH % 19.1 % (22.0-35.0); MEAN CELL VOLUME 98.6 fl (80.0-105.0); MEAN CORPUSCULAR HEMOGLOBIN 33.1 pg (25.0-35.0); MEAN CORPUSCULAR HGB CONC 33.6 g/dl (31.0-37.0); MEAN PLATELET VOLUME 9.2 fl (7.0-11.0); MONO # 0.9 (0.1-0.6); MONO % 14.2 % (1.0-6.0); RBC 2.87 10^6/uL (3.5-6.1); RED CELL DISTRIBUTION WIDTH 14.9 % (11.5-14.5); WHITE BLOOD COUNT 6.4 10^3/uL (4.5-11.0)
[2018-09-28 12:08] LABS: ALB/GLOB RATIO 0.8 (1.1-1.8); ALBUMIN 2.5 g/dL (3.0-4.8); ALT/SGPT 42 U/L (7-56); AST/SGOT 53 U/L (14-36); BLOOD UREA NITROGEN 7 mg/dL (7-21); CALCIUM 7.8 mg/dL (8.4-10.5); GFR NON-AFRICAN AMERICAN > 60
[2018-09-28] MEDS: Magnesium Sulfate 2 GM in Sodium Chloride 0.9% 100 ML IVPB SCH ×2 (12:42→14:01)
[2018-09-28] MEDS: Magnesium Oxide 400 mg Tab UD PO SCH ×2 (12:42→18:28)
[2018-09-28 12:46] LABS: IRON 56 ug/dL (45-180)
[2018-09-28 12:56] LABS: % IRON SATURATION 33 % (20-55); TOTAL IRON BINDING CAPACITY 171 ug/dL (265-497)
--- NOTE | 2018-09-28 13:03 | PN ---
DATE: 09/27/2018 SUBJECTIVE: The patient is an 82-year-old female with a history of alcoholism and senile dementia who was brought to the [facility] and admitted after falling outside of a liquor store. She received contusions to her forehead. When seen today, the patient remains in denial of her problem with alcohol. She is quite more confused and unsettled today, attempting to climb out of bed. She would not let me examine her. PHYSICAL EXAMINATION: VITAL SIGNS: She is afebrile, blood pressure is 149/65, heart rate is 61. LABORATORY STUDIES: Show the white blood cell count to be 6.1, hemoglobin and hematocrit are 10.2 and 29.2 respectively, platelet count is 342. Sodium is 133, potassium is 3, blood urea nitrogen is 9, creatinine is 0.4. ASSESSMENT AND PLAN: So we are continuing to supplement the potassium. We are starting physical therapy for ambulation and we are once again encouraging the patient to realize she needs to discontinue any and all alcohol consumption. Jose Washington MD
[2018-09-28] MEDS: Potassium Chloride 20 MEQ in Dextrose 5%/0.45% NS 1,000 ML IV SCH (15:44)
[2018-09-28 18:22] LABS: FOLATE 8.9 ng/mL
[2018-09-28] MEDS: Multi Vitamins 15 mL UD Oral Solution PO SCH (18:28)
[2018-09-29] MEDS: Potassium Chloride 20 MEQ in Dextrose 5%/0.45% NS 1,000 ML IV SCH ×2 (05:10→23:57)
[2018-09-29 06:32] LABS: BASO # 0.1 K/mm3 (0.0-2.0); BASO % 1.7 % (0.0-3.0); EOS # 0.1 (0.0-0.7); EOS % 2.4 % (1.5-5.0); GRAN # 3.37 (1.4-6.5); GRAN % 56.8 % (50.0-68.0); HEMOGLOBIN 9.1 g/dL (12.0-16.0); LYMPH # 1.8 (1.2-3.4); LYMPH % 29.7 % (22.0-35.0); MEAN CELL VOLUME 99.6 fl (80.0-105.0); MEAN CORPUSCULAR HEMOGLOBIN 33.5 pg (25.0-35.0); MEAN CORPUSCULAR HGB CONC 33.6 g/dl (31.0-37.0); MEAN PLATELET VOLUME 9.8 fl (7.0-11.0); MONO # 0.6 (0.1-0.6); MONO % 9.4 % (1.0-6.0); RBC 2.72 10^6/uL (3.5-6.1); RED CELL DISTRIBUTION WIDTH 15.3 % (11.5-14.5); WHITE BLOOD COUNT 5.9 10^3/uL (4.5-11.0)
[2018-09-29 06:39] LABS: ALB/GLOB RATIO 0.8 (1.1-1.8); ALBUMIN 2.4 g/dL (3.0-4.8); ALT/SGPT 40 U/L (7-56); AST/SGOT 51 U/L (14-36); BLOOD UREA NITROGEN 8 mg/dL (7-21); CALCIUM 7.9 mg/dL (8.4-10.5); GFR NON-AFRICAN AMERICAN > 60
--- NOTE | 2018-09-29 08:42 | CP.PCM.PCO ---
Physician Communication Note - Physician Communication Note Physician Communication Note: psychiatry signed off
--- NOTE | 2018-09-29 10:35 | PN ---
DATE: 09/28/2018 DAILY PROGRESS NOTE SUBJECTIVE: The patient is an 82-year-old female with a history of alcoholism and senile dementia, who was brought to the [facility] after falling outside of a liquor store. She received contusions to her forehead. Through her hospital stay, she had been rather stable, agitated at times, which was treated with Xanax. She was also being treated with Librium, thiamine, multivitamins. The patient refuses to believe that she is an alcoholic or has a problem with alcoholism. When seen today, she is awake and alert. She is stating that she wants to go home. PHYSICAL EXAMINATION: HEART: Regular. LUNGS: Clear. ABDOMEN: Soft and nontender. LABORATORY DATA: Morning laboratories show that the white blood cell count is 6.4, hemoglobin and hematocrit are 8.5 and 28.3 respectively, platelet count is 292. Sodium is 135, potassium is 3.4. Blood urea nitrogen is 7, creatinine is 0.4, nonfasting glucose is 103. ASSESSMENT AND PLAN: Physical therapy has been ordered for the patient. We are hoping for the patient to be transferred to the Transitional Care Unit. We will be checking with the physical therapy evaluation and transfer to Transitional Care Unit when the bed becomes available. Jose Washington MD
[2018-09-29] MEDS: Magnesium Oxide 400 mg Tab UD PO SCH ×3 (11:04→17:50)
[2018-09-29] MEDS: Multi Vitamins 15 mL UD Oral Solution PO SCH (17:36)
[2018-09-30] MEDS: Magnesium Oxide 400 mg Tab UD PO SCH ×2 (10:07→18:15)
[2018-09-30] MEDS: Multi Vitamins 15 mL UD Oral Solution PO SCH (18:16)
[2018-09-30] MEDS: Potassium Chloride 20 MEQ in Dextrose 5%/0.45% NS 1,000 ML IV SCH (18:16)
[2018-10-01 08:12] VITALS: O2SAT 98
[2018-10-01] MEDS: Magnesium Oxide 400 mg Tab UD PO SCH (11:10)
[2018-10-01 12:00] VITALS: RESP 20; TEMP 97.5
[2018-10-01 17:26] VITALS: BP 141/65; PULSE 84
--- NOTE | 2018-10-02 00:11 | DS ---
HISTORY OF PRESENT ILLNESS: The patient is an 82-year-old female with a history of alcoholism and senile dementia, brought to the [facility] after falling outside of a liquor store, suffering a contusion to her head. She was admitted on 09/28/2018. X-rays were negative for fracture, subdural hematoma, intracerebral bleed. During her hospital stay, she was treated with Xanax, Librium, thiamine and multivitamins. We repeatedly addressed her subjects of alcohol abuse which she persistently denied, saying that it was not a problem. We were hoping to transfer the patient to the Transitional Care Unit for further physical therapy since the patient does have a history of multiple falls at home; however, her insurance company felt it best for her to be discharged to home and receive physical therapy there. The patient had walked 90 feet with physical therapy in the hospital, however, required close guarding and the patient herself said she felt very unstable when ambulating, so the patient is discharged to home. Once again, she is warned to avoid alcoholism. Her vital signs are stable on the day of discharge and laboratory studies were acceptable. FINAL DIAGNOSES: 1. Fall on sidewalk. 2. Head contusion. 3. Senile dementia. 4. Alcoholism. Jose Washington MD
== END 2018-10-01 18:45 | disposition home or self-care (01) | DRG 897 ==
LOC: ED 18:25 → ERH 22:18 → 2RNO 09-26 00:21 → OBSVTOIN 09-28 11:47 → 2RNO 09-28 16:33
PROVIDERS: ADMIT Internal Medicine; ATTEND Internal Medicine
DX: F10.229 Alcohol dependence with intoxication, unspecified (principal); E87.6 Hypokalemia; F03.90 Unspecified dementia, unspecified severity, without behavioral disturbance, psychotic disturbance, mood disturbance, and anxiety; S00.83XA Contusion of other part of head, initial encounter; W18.30XA Fall on same level, unspecified, initial encounter; Y92.480 Sidewalk as the place of occurrence of the external cause; Y90.7 Blood alcohol level of 200-239 mg/100 ml; Z91.81 History of falling; R40.2412 Glasgow coma scale score 13-15, at arrival to emergency department

== ENCOUNTER 2019-02-24 11:49 | Emergency (ER) | payer MEDICARE ==
[2019-02-24 12:08] VITALS: BMI 18.7
[2019-02-24 12:15] VITALS: RESP 18; TEMP 98.2
--- NOTE | 2019-02-24 13:10 | ED PDOC ---
Arrival/HPI - General Chief Complaint: Trauma Time Seen by Provider: 02/24/19 12:04 Historian: Patient - History of Present Illness Narrative History of Present Illness (Text): 02/24/19 12:25 83 year old F with pmh of demenia presents with cc of left hand swelling x2days s/p fall at home. Per son, patient was drinking etoh when she suddenly fell on her left side while hitting her head. No LOC. Patient drinks 1 pint of etoh a d ay. Has not had any alcohol today. Patient lives at home with her and son who takes care of her. Patient and son recalls tetanus shot being up to date less 5 years ago. Patient denies any fevers, chills, headache, dizziness, chest pain, cough, abdominal pain, nausea, vomiting, diarrhea, back pain, neck pain, or any other complaint. No numbness or weakness. Time/Duration: 24 hours Symptom Onset: Sudden Symptom Course: Unchanged Activities at Onset: Light Context: Home Past Medical History - Provider Review Nursing Documentation Reviewed: Yes - Infectious Disease Hx of Infectious Diseases: None - Cardiac Hx Cardiac Disorders: No - Pulmonary Hx Respiratory Disorders: No - Neurological Hx Neurological Disorder: No Hx Dementia: Yes - HEENT Hx HEENT Disorder: No - Renal Hx Renal Disorder: No - Endocrine/Metabolic Hx Endocrine Disorders: No - Hematological/Oncological Hx Blood Disorders: No - Integumentary Hx Dermatological Disorder: No - Musculoskeletal/Rheumatological Hx Falls: Yes - Gastrointestinal Other/Comment: Liver problems - Genitourinary/Gynecological Hx Genitourinary Disorders: No - Psychiatric Hx Psychophysiologic Disorder: No Hx Substance Use: No Other/Comment: ETOH ABUSE - Anesthesia Hx Anesthesia: No Family/Social History - Physician Review Nursing Documentation Reviewed: Yes Family/Social History: Unknown Family HX Smoking Status: Never Smoked Hx Alcohol Use: Yes (last drink 02/23/19 2300) Frequency of alcohol use: Daily Hx Substance Use: No Hx Substance Use Treatment: No Allergies/Home Meds Allergies/Adverse Reactions: Allergies No Known Allergies Allergy (Verified 09/25/18 18:48) Home Medications: Home Meds Medication Instructions Recorded Confirmed No Known Home Med 09/25/18 02/24/19 Review of Systems - Physician Review All systems were reviewed & negative as marked: Yes - Review of Systems Constitutional: Normal Eyes: Normal ENT: Normal Respiratory: Normal Cardiovascular: Normal Gastrointestinal: Normal Genitourinary Female: Normal Musculoskeletal: Other (hand pain on left). absent: Arthralgias, Back Pain Skin: Normal Neurological: Normal Endocrine: Normal Hemo/Lymphatic: Normal Psychiatric: Normal Physical Exam Vital Signs Reviewed: Yes Vital Signs Temp Pulse Resp BP Pulse Ox 02/24/19 12:13 98.2 F 99 H 18 158/68 H 97 Temperature: Afebrile Blood Pressure: Hypertensive Pulse: Regular Respiratory Rate: Normal Appearance: Positive for: Well-Appearing, Non-Toxic, Comfortable Pain Distress: None Mental Status: Positive for: Alert and Oriented X 3 - Systems Exam Head: Present: Normocephalic, Swelling (Left side of forehead), Abrasion (Left side of forehead) Pupils: Present: PERRL Extroacular Muscles: Present: EOMI Conjunctiva: Present: Normal Mouth: Present: Moist Mucous Membranes Nose (External): Present: Abrasion Neck: Present: Normal Range of Motion. No: MIDLINE TENDERNESS, Paraspinal Tenderness Respiratory/Chest: Present: Clear to Auscultation, Good Air Exchange. No: Respiratory Distress, Accessory Muscle Use Cardiovascular: No: Murmurs, Tachycardic Abdomen: No: Tenderness, Distention, Peritoneal Signs Back: Present: Normal Inspection. No: CVA Tenderness, Midline Tenderness Upper Extremity: Present: NORMAL PULSES, Tenderness (Left hand: 5 MCP, 4 MCP, 3 MCP with tenderness and ecchymosis. NO Wrist tenderness ), Neurovascularly Intact, Other (+2 cap refill. No elbow tenderness. No snuff box tenderness). No: Cyanosis Lower Extremity: Present: Normal Inspection, NORMAL PULSES, Neurovascularly Intact. No: Edema Neurological: Present: GCS=15, CN II-XII Intact, Speech Normal, Motor Func Grossly Intact, Normal Sensory Function Skin: Present: Warm, Dry, Normal Color. No: Rashes Psychiatric: Present: Alert, Oriented x 3, Normal Insight, Normal Concentration Medical Decision Making ED Course and Treatment: 02/24/19 12:28 Impression: 83 year old F presents with cc of Left hand swelling x2days s/p fall at home Differential Diagnosis included but are not limited to: Mechanical Fall with Head Injury and Left Hand Injury r/o ICH r/o Fracture Plan: -- CT Maxillofacial w/o contrast -- CT Head w/o contrast -- Hand left xray -- left wrist xray -- Reassess and disposition Prior Visits: Notes and results from previous visits were reviewed. Progress Notes: 02/24/19 12:35 CT Maxillofacial w/o contrast --Unremarkable non contrast enhanced CT of the maxillofacial bones. No evidence of acute fracture CT Head w/o contrast --No acute intracranial findings Hand left xray --Minimally displaced fractures are seen at the base of the 4th and 5th metacarpals Left wrist xray --negative wrist Patient presents with mechanical fall. No syncopal episode. Good historian. She has a positive fracture of left hand. EMT Carlos pleased left hand ulnar gutter splint. No neurovascular compromise after splint. Patient comfortable with no pain. She was given instructions with her son to f/u with a hand specialist. She was advised to refrain from drinking with a detox program. Her said will make sure she follows up. She was advised to return to the ED if symptoms worsen or any other concerns. - RAD Interpretation Radiology Orders: 02/24/19 12:35 HEAD W/O CONTRAST [CT] Stat MAXILLOFACIAL W/O CONTRAST [CT] Stat HAND LEFT 3 VIEWS ROUTINE [RAD] Stat WRIST, LEFT 3 VIEWS [RAD] Stat - Scribe Statement The provider has reviewed the documentation as recorded by the Gurdeep Ann All medical record entries made by the Neldaibmartín were at my direction and personally dictated by me. I have reviewed the chart and agree that the record accurately reflects my personal performance of the history, physical exam, medical decision making, and the department course for this patient. I have also personally directed, reviewed, and agree with the discharge instructions and disposition. Disposition/Present on Arrival - Present on Arrival Any Indicators Present on Arrival: No History of DVT/PE: No History of Uncontrolled Diabetes: No Urinary Catheter: No History of Decub. Ulcer: No History Surgical Site Infection Following: None - Disposition Have Diagnosis and Disposition been Completed?: Yes Diagnosis: Fall, Alcohol abuse, Head injury, Hand fracture, left Disposition: HOME/ ROUTINE Disposition Time: 08:30 Patient Plan: Discharge Condition: IMPROVED Discharge Instructions (ExitCare): Finger Fracture, Preventing Falls in the Older Adult, Concussion, Adult (DC), Alcohol Abuse and Alcoholism (DC) Additional Instructions: CARMELA PAVON, thank you for letting us take care of you today. Your provider was Karan Whitley DO and you were treated for Finger Fractures, Head Injury, Alcohol Abuse, Mechanical Fall. The emergency medical care you received today was directed at your acute symptoms. If you were prescribed any medication, please fill it and take as directed. It may take several days for your symptoms to resolve. Return to the Emergency Department if your symptoms worsen, do not improve, or if you have any other problems. MAKE SURE TO ICE YOU HAND AND WRIST AT LEAST 3 TIMES DAILY, TO REST AND ELEVATE YOU HAND AND TO FOLLOW UP WITH ORTHOPEDICS DR. INGRAM, ORTHOPEDICS THIS WEEK. Please contact your doctor or call one of the physicians/clinics you have been referred to that are listed on the Patient Visit Information form that is included in your discharge packet. Bring any paperwork you were given at discharge with you along with any medications you are taking to your follow up visit. Our treatment cannot replace ongoing medical care by a primary care provider outside of the emergency department. Thank you for allowing the [facility] team to be part of your care today. If you had an X-Ray or CT scan: A Radiologist will review the ED reading if any change in treatment is needed we will contact you. If you had a blood, urine, or wound culture: It will take several days for the results, if any change in treatment is needed we will contact you. If you had an STI test: It will take 48 hours for the results. Please call after 1 week if you have not heard back. Referrals: Jairo Haywood III, MD [Medical Doctor] - Follow up with primary Jose Washington MD [Primary Care Provider] - Follow up with primary Forms: [email or web address] ([place])
--- NOTE | 2019-02-24 14:16 | CT ---
Date of service: 02/24/2019 PROCEDURE: CT HEAD WITHOUT CONTRAST. HISTORY: r/o cva COMPARISON: 09/25/2018 TECHNIQUE: Axial computed tomography images were obtained through the head/brain without intravenous contrast. Radiation dose: Total exam DLP = 856.57 mGy-cm. This CT exam was performed using one or more of the following dose reduction techniques: Automated exposure control, adjustment of the mA and/or kV according to patient size, and/or use of iterative reconstruction technique. FINDINGS: HEMORRHAGE: No intracranial hemorrhage. BRAIN: No mass effect or edema. Chronic microvascular changes are seen. There is mild atrophy. VENTRICLES: Unremarkable. No hydrocephalus. CALVARIUM: Unremarkable. PARANASAL SINUSES: Unremarkable as visualized. No significant inflammatory changes. MASTOID AIR CELLS: Unremarkable as visualized. No inflammatory changes. OTHER FINDINGS: None. IMPRESSION: No acute intracranial findings
--- NOTE | 2019-02-24 14:19 | CT ---
Date of service: 02/24/2019 PROCEDURE: CT MAXILLOFACIAL BONES WITHOUT CONTRAST HISTORY: fall r/o fx (left forehead and nasal bridge injuri COMPARISON: None available. TECHNIQUE: Contiguous axial CT images of the maxillofacial bones were obtained. Coronal and sagittal reformats were generated. Radiation dose: Total exam DLP = 654.34 mGy-cm. This CT exam was performed using one or more of the following dose reduction techniques: Automated exposure control, adjustment of the mA and/or kV according to patient size, and/or use of iterative reconstruction technique. FINDINGS: NASAL BONES: Unremarkable. ORBITS: Unremarkable. PARANASAL SINUSES/ MASTOIDS: Clear. MAXILLA: Unremarkable. MANDIBLE/ TEMPOROMANDIBULAR JOINTS: Unremarkable. SKULL BASE: Unremarkable. TEMPORAL BONES: Middle ears and mastoid grossly unremarkable. OTHER FINDINGS: None. IMPRESSION: Unremarkable non contrast enhanced CT of the maxillofacial bones. No evidence of acute fracture
--- NOTE | 2019-02-24 14:49 | RAD ---
Date of service: 02/24/2019 PROCEDURE: Left Wrist Radiographs. HISTORY: fall r/o fx COMPARISON: None. TECHNIQUE: 4 views obtained. FINDINGS: BONES: Minimally displaced fractures are seen at the base of the 4th and 5th metacarpals. JOINTS: Normal. No dislocation. SOFT TISSUES: Normal. OTHER FINDINGS: None. IMPRESSION: Negative wrist
--- NOTE | 2019-02-24 14:49 | RAD ---
PROCEDURE: Left Hand Radiographs. HISTORY: fall r/o fx, tender to 3/4/5 MCP COMPARISON: None. TECHNIQUE: 3 views obtained. FINDINGS: BONES: Minimally displaced fractures are seen at the base of the 4th and 5th metacarpals. JOINTS: Degenerative changes are seen in the DIP joints SOFT TISSUES: Normal. OTHER FINDINGS: None. IMPRESSION: Minimally displaced fractures are seen at the base of the 4th and 5th metacarpals.
[2019-02-24 15:59] VITALS: BP 145/62; PULSE 85; O2SAT 98
== END 2019-02-24 15:58 | disposition home or self-care (01) ==
LOC: ED 11:49
DX: F10.10 Alcohol abuse, uncomplicated (principal); S09.90XA Unspecified injury of head, initial encounter; S62.315A Displaced fracture of base of fourth metacarpal bone, left hand, initial encounter for closed fracture; S62.317A Displaced fracture of base of fifth metacarpal bone, left hand, initial encounter for closed fracture; W19.XXXA Unspecified fall, initial encounter; Y92.009 Unspecified place in unspecified non-institutional (private) residence as the place of occurrence of the external cause

== ENCOUNTER 2019-04-13 17:20 | Emergency (ER) | payer MEDICARE ==
[2019-04-13 17:20] VITALS: BMI 18.7
[2019-04-13 17:57] VITALS: TEMP 97.7
--- NOTE | 2019-04-13 18:21 | ED PDOC ---
Arrival/HPI - General Chief Complaint: Trauma Time Seen by Provider: 04/13/19 18:12 - History of Present Illness Narrative History of Present Illness (Text): 04/13/19 18:18 83 f with no pmhx presents to the ED for evaluation of witnessed fall and head injury. Patient denies any physical complaints, patient is unsure why she is in the ED now, patient states that the abrasion on her forehead in old. As per report, patient was witnessed to fall to the ground, hitting face, suspected alcohol on breath. Past Medical History - Infectious Disease Hx of Infectious Diseases: None - Reproductive Menopause: Yes - Cardiac Hx Cardiac Disorders: No - Pulmonary Hx Respiratory Disorders: No - Neurological Hx Neurological Disorder: No Hx Dementia: Yes - HEENT Hx HEENT Disorder: No - Renal Hx Renal Disorder: No - Endocrine/Metabolic Hx Endocrine Disorders: No - Hematological/Oncological Hx Blood Disorders: No - Integumentary Hx Dermatological Disorder: No - Musculoskeletal/Rheumatological Hx Falls: Yes - Gastrointestinal Other/Comment: Liver problems - Genitourinary/Gynecological Hx Genitourinary Disorders: No - Psychiatric Hx Psychophysiologic Disorder: No Hx Substance Use: No Other/Comment: ETOH ABUSE - Anesthesia Hx Anesthesia: No Family/Social History Family/Social History: Unknown Family HX Smoking Status: Never Smoked Hx Alcohol Use: Yes (last drink 02/23/19 2300) Hx Substance Use: No Hx Substance Use Treatment: No Allergies/Home Meds Allergies/Adverse Reactions: Allergies No Known Allergies Allergy (Verified 09/25/18 18:48) Home Medications: Home Meds Medication Instructions Recorded Confirmed No Known Home Med 09/25/18 02/24/19 Review of Systems - Physician Review All systems were reviewed & negative as marked: Yes Physical Exam - Physical Exam Narrative Physical Exam (Text): 04/13/19 18:19 Gen: VS reviewed, alert, well developed, well nourished, nontoxic, mild distress Head: large abrasion above the right eyebrow, there is a less than 1cm linear horizontal laceration of the right eyebrow. Eye: EOMI, PERRL Neck: no JVD, supple, no adenopathy CV: regular rate, regular rhythm, no rubs,no murmur, S1, S2 Pulm: no distress, clear to auscultation, no wheeze, no rhonchi, breath sounds equal, no rales Abd: soft, nontender, no guarding, no rebound, no rigidity Ext: no edema Skin: good color, no rash, no cyanosis Psych: responds appropriately to questions, normal affect Neuro: oriented x3, CN2-12 intact grossly, motor intact, sensation intact Vital Signs Temp Pulse Resp BP Pulse Ox 04/13/19 17:48 97.7 F 88 16 140/66 100 Finger Stick Blood Glucose: 138 Medical Decision Making - Lab Interpretations I have reviewed the lab results: Yes - RAD Interpretation Narrative RAD Interpretations (Text): CT Head: BRAIN: Chronic periventricular and subcortical microvascular disease is seen. No acute intracranial pathology. VENTRICLES: There is generalized parenchymal atrophy noted as demonstrated by symmetrical dilatation of ventricles and sulci. ORBITS: The orbits are unremarkable. SINUSES AND MASTOIDS: The paranasal sinuses and mastoid air cells are clear. BONES: No fracture. SOFT TISSUES: Unremarkable. IMPRESSION: 1. There is generalized parenchymal atrophy . 2. Chronic periventricular and subcortical microvascular disease is seen. 3. No acute intracranial pathology. Electronically signed on April 13, 2019 8:13:21 PM EDT by: Ta Muse M.D., M.B.A., Certified By [employer] Trained MRI and CT Specialist CT Cervical Spine: There is no fracture visualized. The paraspinal soft tissues are unremarkable. There are no lytic or blastic lesions. Straightening of cervical lordosis is seen, suggesting muscular spasm. There is evidence of severe multilevel disk disease, demonstrated by prominent anterior and posterior marginal osteophytosis and endplate sclerosis. There are increased interstitial lung markings present compatible with pulmonary fibrosis. IMPRESSION: 1. 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 2. Straightening of cervical lordosis is seen, suggesting muscular spasm. 3. No fracture. 4. Increased interstitial lung markings present compatible with pulmonary fibrosis. Electronically signed on April 13, 2019 8:25:23 PM EDT by: Ta Muse M.D., M.B.A., Certified By [employer] Trained MRI and CT Specialist Radiology Orders: 04/13/19 18:13 HEAD W/O CONTRAST [CT] Stat 04/13/19 18:14 CERVICAL SPINE W/O CONTRAST [CT] Stat 04/13/19 18:17 CHEST PORTABLE [RAD] Stat Major Sales Associate: Radiologist - EKG Interpretation EKG Interpretation (Text): 04/13/19 20:07 ekg my read: nsr at 75 bpm, nml qrs, nml axis, nonspecific t wave abn; unchanged from old ekg on Interpreted by ED Physician: Yes Disposition/Present on Arrival - Present on Arrival History of DVT/PE: No History of Uncontrolled Diabetes: No Urinary Catheter: No History of Decub. Ulcer: No History Surgical Site Infection Following: None - Disposition Diagnosis: Head injury, Abrasion, Alcohol intoxication Patient Problems: Current Active Problems Problem Status Onset Head injury Acute Abrasion Acute Alcohol intoxication Acute Condition: STABLE Discharge Instructions (ExitCare): Wound Care (DC), Closed Head Injury (DC), Alcohol Abuse and Alcoholism (DC) Additional Instructions: return for any problems or concerns. Forms: [facility] [facility] (Pashto)
--- NOTE | 2019-04-13 18:42 | RAD ---
Date of service: 04/13/2019 HISTORY: Chest pain. 06/22/2018. COMPARISON: No prior. FINDINGS: LUNGS: No active pulmonary disease. PLEURA: No significant pleural effusion identified, no pneumothorax apparent. CARDIOVASCULAR: No atherosclerotic calcification present Normal. OSSEOUS STRUCTURES: No significant abnormalities. VISUALIZED UPPER ABDOMEN: Normal. OTHER FINDINGS: None. IMPRESSION: No active disease. No significant interval change compared to the prior examination(s).
[2019-04-13 19:09] LABS: URINE APPEARANCE CLEAR (CLEAR); URINE BILIRUBIN NEGATIVE (NEGATIVE); URINE BLOOD NEGATIVE (NEGATIVE); URINE COLOR YELLOW (YELLOW); URINE GLUCOSE (UA) NEGATIVE (NEGATIVE); URINE LEUKOCYTE ESTERASE NEGATIVE Leu/uL (NEGATIVE); URINE PROTEIN NEGATIVE mg/dL (<30 mg/dL); URINE UROBILINOGEN 0.2 E.U./dL (<1 E.U./dL)
[2019-04-13 19:22] LABS: BASO # 0.07 K/mm3 (0.0-2.0); BASO % 0.7 % (0.0-3.0); EOS # 0.1 (0.0-0.7); EOS % 0.9 % (1.5-5.0); HEMOGLOBIN 14.8 g/dL (12.0-16.0); LYMPH % 20.3 % (22.0-35.0); MEAN CELL VOLUME 98.2 fl (80.0-105.0); MEAN CORPUSCULAR HEMOGLOBIN 32.5 pg (25.0-35.0); MEAN CORPUSCULAR HGB CONC 33.1 g/dl (31.0-37.0); MEAN PLATELET VOLUME 9.5 fl (7.0-11.0); MONO # 1.3 (0.1-0.6); MONO % 12.8 % (1.0-6.0); RBC 4.55 10^6/uL (3.5-6.1); RED CELL DISTRIBUTION WIDTH 12.9 % (11.5-14.5); WHITE BLOOD COUNT 9.9 10^3/uL (4.5-11.0)
[2019-04-13 19:27] LABS: ALB/GLOB RATIO 1.1 (1.1-1.8); BLOOD UREA NITROGEN 17 mg/dL (7-21); CALCIUM 9.3 mg/dL (8.4-10.5); GFR NON-AFRICAN AMERICAN > 60
[2019-04-13 19:44] LABS: ALT/SGPT 8 U/L (7-56); AST/SGOT 26 U/L (14-36)
[2019-04-13 19:54] VITALS: BP 138/70
[2019-04-13 20:01] VITALS: PULSE 81; RESP 17; O2SAT 100
[2019-04-13] MEDS ORDERED: Bacitracin 500 Units/gm Oint Foilpak UD TOP STA (20:18)
--- NOTE | 2019-04-14 09:25 | CT ---
Date of service: 04/13/2019 PROCEDURE: CT HEAD WITHOUT CONTRAST. HISTORY: trauma COMPARISON: 02/24/2019 TECHNIQUE: Axial computed tomography images were obtained through the head/brain without intravenous contrast. Radiation dose: Total exam DLP = 631.04 mGy-cm. This CT exam was performed using one or more of the following dose reduction techniques: Automated exposure control, adjustment of the mA and/or kV according to patient size, and/or use of iterative reconstruction technique. FINDINGS: HEMORRHAGE: No intracranial hemorrhage. BRAIN: No mass effect or edema. Mild atrophy. No acute findings VENTRICLES: Unremarkable. No hydrocephalus. CALVARIUM: Unremarkable. PARANASAL SINUSES: Unremarkable as visualized. No significant inflammatory changes. MASTOID AIR CELLS: Unremarkable as visualized. No inflammatory changes. OTHER FINDINGS: The report concurs with the preliminary [facility] report IMPRESSION: No acute intracranial findings
--- NOTE | 2019-04-14 09:30 | CT ---
Date of service: 04/13/2019 PROCEDURE: CT Cervical Spine without contrast HISTORY: trauma COMPARISON: None available. TECHNIQUE: Axial computed tomography images were obtained of the cervical spine without the use of intravenous contrast. Coronal and sagittal reformatted images were created and reviewed. Radiation dose: Total exam DLP = 182.23 mGy-cm. This CT exam was performed using one or more of the following dose reduction techniques: Automated exposure control, adjustment of the mA and/or kV according to patient size, and/or use of iterative reconstruction technique. FINDINGS: VERTEBRAE: No fracture. Normal alignment. No destructive bony lesion. DISCS/SPINAL CANAL/NEURAL FORAMINA: Multilevel disc degeneration. PARASPINAL SOFT TISSUES: There is apical scarring OTHER FINDINGS: The report concurs with the preliminary [facility] report IMPRESSION: No acute fracture
--- NOTE | 2019-04-14 15:50 | CARD ---
APPROVED REPORT Date of service: 04/13/2019 EKG Measurement Heart [id number] 140P80 [id number] <Conclusion> Normal sinus rhythm Nonspecific T wave abnormality Prolonged QT Abnormal ECG
== END 2019-04-13 21:48 | disposition home or self-care (01) ==
LOC: ED 17:20
DX: S00.81XA Abrasion of other part of head, initial encounter (principal); W18.30XA Fall on same level, unspecified, initial encounter; Y92.410 Unspecified street and highway as the place of occurrence of the external cause; F10.129 Alcohol abuse with intoxication, unspecified; Y90.7 Blood alcohol level of 200-239 mg/100 ml; F03.90 Unspecified dementia, unspecified severity, without behavioral disturbance, psychotic disturbance, mood disturbance, and anxiety
CPT/HCPCS: 70450; 71045; 72125; 80053; 81003; 82948; 83735; 85025; 93005; 99285; G0480